=== PATIENT | female | born 1960 | race Two or more races ===

== ENCOUNTER 2019-12-29 13:02 | Emergency (ER) | payer MEDICAID ==
[~2019-12-29] VITALS: Ht 162.6 cm; Wt 99.0 kg
[2019-12-29 13:23] VITALS: BP 151/82
[2019-12-29] MEDS ORDERED: KETOROLAC 30MG/ML VIAL IM ONE (15:15)
== END 2019-12-29 15:25 | disposition left against medical advice (07) ==
LOC: ER 13:02
DX: M79.601 Pain in right arm (principal); R20.0 Anesthesia of skin; I10 Essential (primary) hypertension
CPT/HCPCS: 99281